=== PATIENT | female | born 1995 | race Two or more races ===

== ENCOUNTER 2019-09-10 12:04 | Observation (INO) | payer SELFPAY ==
[~2019-09-10] VITALS: Ht 162.6 cm; Wt 59.9 kg
[2019-09-10] MEDS ORDERED: PREN-96 PO (14:16)
[2019-09-10] MEDS ORDERED: TERBUTALINE SULFATE 1 MG/ML 1ML VIAL SC SCH (14:45)
[2019-09-10] MEDS ORDERED: LACTATED RINGER'S 1,000 ML IV ONE (14:45)
== END 2019-09-10 16:23 | disposition home or self-care (01) | DRG 833 ==
LOC: LDRP 12:04 → EDBD 12:04
PROVIDERS: ADMIT Specialist; ATTEND Specialist
DX: O60.02 Preterm labor without delivery, second trimester (principal); O26.892 Other specified pregnancy related conditions, second trimester; R10.30 Lower abdominal pain, unspecified; Z3A.25 25 weeks gestation of pregnancy
CPT/HCPCS: 59025; 76805; 81002; 96360; G0378

== ENCOUNTER 2019-09-18 17:57 | Observation (INO) | payer MEDICAID ==
[~2019-09-18 17:57] MED LIST: PREN-96 PO
[2019-09-18] MEDS ORDERED: NIF10C GT (18:15)
[2019-09-18] MEDS ORDERED: LACTATED RINGER'S 1,000 ML IV SCH (18:44)
[2019-09-18] MEDS ORDERED: LACTATED RINGER'S 1,000 ML IV ONE (18:44)
[2019-09-18] MEDS ORDERED: NIFEdipine 10 MG CAP PO ONE (20:00)
== END 2019-09-18 21:57 | disposition home or self-care (01) | DRG 833 ==
LOC: LDRP 17:57
PROVIDERS: ADMIT Specialist; ATTEND Specialist
DX: O60.02 Preterm labor without delivery, second trimester (principal); Z3A.27 27 weeks gestation of pregnancy
CPT/HCPCS: 59025; 81002; 96360; 96361; G0378

== ENCOUNTER 2019-09-25 18:23 | Observation (INO) | payer SELFPAY ==
[~2019-09-25 18:23] MED LIST changes: +NIF10C GT
== END 2019-09-25 19:30 | disposition home or self-care (01) | DRG 833 ==
LOC: LDRP 18:23
PROVIDERS: ADMIT Specialist; ATTEND Specialist
DX: O60.02 Preterm labor without delivery, second trimester (principal); Z3A.27 27 weeks gestation of pregnancy
CPT/HCPCS: 59025; 81002; G0378

== ENCOUNTER 2019-10-02 18:00 | Observation (INO) | payer MEDICAID | END 2019-10-02 18:49 | disposition home or self-care (01) | DRG 833 | LOC: LDRP 18:00 | PROVIDERS: ADMIT Obstetrics & Gynecology; ATTEND Obstetrics & Gynecology | DX: O60.03 Preterm labor without delivery, third trimester (principal); Z3A.28 28 weeks gestation of pregnancy | CPT/HCPCS: 59025; 81002; G0378 ==

== ENCOUNTER 2019-10-09 17:55 | Observation (INO) | payer MEDICAID, OTHER | END 2019-10-09 18:39 | disposition home or self-care (01) | DRG 833 | LOC: LDRP 17:55 | PROVIDERS: ADMIT Specialist; ATTEND Specialist | DX: O60.03 Preterm labor without delivery, third trimester (principal); Z3A.29 29 weeks gestation of pregnancy | CPT/HCPCS: 59025; 81002; G0378 ==

== ENCOUNTER 2019-12-03 12:21 | Observation (INO) | payer MEDICAID ==
[2019-12-03 13:30] LABS: Basophils # (auto) 0 10 ^3/uL (0-0.2); Basophils % (auto) 0.3 % (0.0-2.0); Eosinophils # (auto) 0 10 ^3/uL (0-0.8); Eosinophils % (auto) 0.3 % (0.0-7.0); Hematocrit 35.2 % (36.0-46.0); Hemoglobin 12.2 g/dL (12.2-16.2); Lymphocytes # (auto) 1.1 10 ^3/uL (0.4-5.4); Lymphocytes % (auto) 16.7 % (10.0-50.0); Mean Corpuscular Hgb Conc. 34.7 g/dL (32.0-36.0); Mean Corpuscular Volume 92.3 fL (80.0-100.0); Monocytes # (auto) 0.4 10 ^3/uL (0-1.3); Monocytes % (auto) 6.3 % (0.0-12.0); Neutrophils % (auto) 76.4 % (37.0-80.0); Nucleated Red Blood Cells % 0.1 %; Platelet Count (auto) 124 10^3/uL (140-450); Red Blood Cells 3.81 10^6/uL (4.0-5.20); Red Cell Distribution Width 12.9 % (11.8-14.3); White Blood Cell 6.6 10^3/uL (4.4-10.8)
[2019-12-03 14:24] LABS: INR 0.92 (0.9-1.15); Partial Thromboplastin Time 30.9 sec (23.0-31.2)
[2019-12-03 15:09] LABS: Calcium 8.8 mg/dL (8.5-10.1); Potassium 3.7 mmol/L (3.5-5.1)
[2019-12-03 15:12] LABS: Bilirubin, Total 0.3 mg/dL (0.2-1.0); Total Protein 6.1 g/dL (6.4-8.2)
== END 2019-12-03 15:05 | disposition home or self-care (01) ==
LOC: LDRP 12:21
PROVIDERS: ADMIT Specialist; ATTEND Specialist
DX: O26.893 Other specified pregnancy related conditions, third trimester (principal); Z3A.37 37 weeks gestation of pregnancy; Z79.899 Other long term (current) drug therapy
CPT/HCPCS: 36415; 59025; 80053; 81002; 85025; 85384; 85610; 85730; G0378

== ENCOUNTER 2019-12-15 09:00 | Observation (INO) | payer MEDICAID | END 2019-12-15 12:00 | disposition home or self-care (01) | LOC: LDRP 09:00 | PROVIDERS: ADMIT Obstetrics & Gynecology; ATTEND Obstetrics & Gynecology | DX: O62.9 Abnormality of forces of labor, unspecified (principal); O26.893 Other specified pregnancy related conditions, third trimester; R10.30 Lower abdominal pain, unspecified; Z3A.39 39 weeks gestation of pregnancy | CPT/HCPCS: 59025; 81002; G0378 ==

== ENCOUNTER 2019-12-15 18:49 | Observation (INO) | payer MEDICAID ==
[~2019-12-15] VITALS: Ht 162.6 cm; Wt 66.2 kg
== END 2019-12-15 21:30 | disposition home or self-care (01) ==
LOC: LDRP 18:49
PROVIDERS: ADMIT Obstetrics & Gynecology; ATTEND Obstetrics & Gynecology
DX: O62.9 Abnormality of forces of labor, unspecified (principal); Z3A.39 39 weeks gestation of pregnancy
CPT/HCPCS: 59025; 81002; G0378

== ENCOUNTER 2019-12-16 05:33 | Inpatient (IN) | payer MEDICAID ==
[~2019-12-16] VITALS: Ht 162.6 cm; Wt 65.8 kg
[2019-12-16] MEDS ORDERED: LACT. RINGERS/OXYTOCIN 20UNITS 1,000 ML IV SCH ×2 (06:15→12:45)
[2019-12-16] MEDS ORDERED: WITCH HAZEL-GLYCERIN PAD TOP PRN (06:15)
[2019-12-16] MEDS ORDERED: LIDOCAINE 2%HCL (LOCAL ANESTH.) INJ 20ML MDV ID ONE (06:15)
[2019-12-16] MEDS ORDERED: LACTATED RINGER'S 1,000 ML IV SCH (06:15)
[2019-12-16] MEDS ORDERED: PHISODERM TOP SOLN 240ML BTL TOP PRN (06:15)
[2019-12-16] MEDS ORDERED: DERMOPLAST 60ML BOTTLE TOP PRN (06:15)
[2019-12-16] MEDS ORDERED: CARBOPROST TROMETHAMINE 250 MCG/1ML VIAL IM PRN (06:15)
[2019-12-16 07:20] LABS: Basophils # (auto) 0.1 10 ^3/uL (0-0.2); Basophils % (auto) 0.6 % (0.0-2.0); Eosinophils # (auto) 0 10 ^3/uL (0-0.8); Hematocrit 38.2 % (36.0-46.0); Hemoglobin 13.3 g/dL (12.2-16.2); Lymphocytes # (auto) 0.9 10 ^3/uL (0.4-5.4); Mean Corpuscular Hemoglobin 32.2 pg (28.0-32.0); Mean Corpuscular Hgb Conc. 34.8 g/dL (32.0-36.0); Mean Corpuscular Volume 92.7 fL (80.0-100.0); Monocytes # (auto) 0.6 10 ^3/uL (0-1.3); Monocytes % (auto) 4.1 % (0.0-12.0); Neutrophils # (auto) 12.7 10 ^3/uL (1.6-8.6); Neutrophils % (auto) 89.3 % (37.0-80.0); Nucleated Red Blood Cells % 0.2 %; Platelet Count (auto) 137 10^3/uL (140-450); Red Blood Cells 4.12 10^6/uL (4.0-5.20); Red Cell Distribution Width 13.1 % (11.8-14.3); White Blood Cell 14.3 10^3/uL (4.4-10.8)
[2019-12-16 07:44] LABS: Potassium 3.9 mmol/L (3.5-5.1)
[2019-12-16 07:45] LABS: INR 0.94 (0.9-1.15); Partial Thromboplastin Time 32.8 sec (23.0-31.2)
[2019-12-16 07:52] LABS: BUN/Creatinine Ratio 13.3; Bilirubin, Total 0.6 mg/dL (0.2-1.0); Calcium 9.1 mg/dL (8.5-10.1); Total Protein 6.6 g/dL (6.4-8.2)
[2019-12-16 09:54] LABS: Urine Amorphous Crystal FEW /hpf (None Seen); Urine Bacteria FEW /hpf (None Seen); Urine Blood 3+ /uL (Negative); Urine Hyaline Cast FEW /lpf (0 - 2); Urine Mucus FEW (None Seen); Urine Specific Gravity 1.023 (1.001-1.035); Urine WBC 47 /hpf (0 - 5)
[2019-12-16 10:10] LABS: Amphetamine Screen, Urine NEGATIVE (NEGATIVE); Barbiturate Scree,Urine NEGATIVE (NEGATIVE); Benzodiazephine Screen, Urine NEGATIVE (NEGATIVE); Cannabinoid Screen, Urine NEGATIVE (NEGATIVE); Cocaine Screen, Urine NEGATIVE (NEGATIVE); Opiate Scree,Urine NEGATIVE (NEGATIVE); Phencyclidine Screen, Urine NEGATIVE (NEGATIVE)
[2019-12-16] MEDS ORDERED: METHYLERGONOVINE MALEATE 0.2 MG/ML AMP IM ONE (11:13)
[2019-12-16] MEDS ORDERED: miSOPROStol 100 mcg TAB ONE (11:13)
[2019-12-16] MEDS ORDERED: miSOPROStol 100 mcg TAB PR ONE (11:15)
[2019-12-16] MEDS ORDERED: METHYLERGONOVINE MALEATE 0.2 MG/ML AMP IM PRN (11:15)
[2019-12-16] MEDS ORDERED: miSOPROStol 100 mcg TAB SL ONE (11:15)
[2019-12-16] MEDS ORDERED: LACT. RINGERS/OXYTOCIN 20UNITS 1,000 ML IV ONE (11:45)
[2019-12-16] MEDS ORDERED: ACETAMINOPHEN 325 MG TAB PO PRN (11:45)
[2019-12-16] MEDS: IBUPROFEN 600 MG TAB PO PRN ×2 (11:56→19:26)
--- NOTE | 2019-12-16 13:35 | NUR ---
Ambulation: Patient OOB with standby assistance by RN. Patient ambulated to bathroom with steady gait. Patient able to void without difficulty. [facility] teaching provided with returned demonstration by patient. Clean gown provided and bed linen changed. Patient ambulated back to chair with steady gait and no distress noted. Pain 0/10.
[2019-12-16 15:00] VITALS: BP 118/78
[2019-12-16 18:30] VITALS: BP 121/84
[2019-12-16 22:49] VITALS: BP 110/66
[2019-12-17 02:44] VITALS: BP 108/61
[2019-12-17] MEDS: IBUPROFEN 600 MG TAB PO PRN (03:34)
[2019-12-17 07:12] VITALS: BP 104/57
[2019-12-17] MEDS ORDERED: PREN-96 PO (07:17)
[2019-12-17] MEDS ORDERED: DOCUSATE CALCIUM 240 MG CAP PO SCH (10:00)
[2019-12-17 10:58] VITALS: BP 119/68
--- NOTE | 2019-12-17 13:00 | NUR ---
Artificial Nipple Education: Encouraged mother to refrain from using artificial nipples which include a pacifier. Discussed the risk of artificial nipple use and its effect on effective . Mother verbalized understanding of information and agreed to refrain from using artificial nipples.
--- NOTE | 2019-12-17 13:23 | NUR ---
Discharge: Discharge instructions given as ordered. Pt encouraged to follow up with [facility] as instructed. All questions and concerns addressed. Patient verbalized understanding. Medication reconciliation completed and copy given to patient. Patient encouraged to prepare to depart unit.Discharge: Patient taken to vehicle via ambulation with all personal belongings, accompanied by staff and family member. No distress noted at time of departure, no adverse changes in status since initial assessment.
== END 2019-12-17 13:23 | disposition home or self-care (01) | DRG 560 ==
LOC: LDRP 05:33 → OBSVTOIN 05:34 → LDRP 06:00
PROVIDERS: ADMIT Obstetrics & Gynecology; ATTEND Obstetrics & Gynecology
PROC: 10E0XZZ Delivery of Products of Conception, External Approach (ICD-10-PCS; principal; 2019-12-16)
PROC: 0W8NXZZ Division of Female Perineum, External Approach (ICD-10-PCS; 2019-12-16)
PROC: 10907ZC Drainage of Amniotic Fluid, Therapeutic from Products of Conception, Via Natural or Artificial Opening (ICD-10-PCS; 2019-12-16)
PROC: 0KQM0ZZ Repair Perineum Muscle, Open Approach (ICD-10-PCS; 2019-12-16)
DX: O70.1 Second degree perineal laceration during delivery (principal); Z37.0 Single live birth; Z3A.39 39 weeks gestation of pregnancy
CPT/HCPCS: 36415; 59025; 59409; 80053; 80307; 81001; 81002; 84112; 85025; 85610; 85730; 86592; 86850; 86900; 86901; 94760; 96361; 96365; 96372; G0378; J2590